=== PATIENT | female | born 1995 | race Caucasian/White ===

== ENCOUNTER 2016-11-07 07:20 | Emergency (ER) | payer BC ==
[2016-11-07 07:26] VITALS: TEMP 98.9; BMI 30.7
--- NOTE | 2016-11-07 08:03 | PDOC ---
History of Present Illness - General Chief Complaint: Injury Stated Complaint: R FOOT INJURY Time Seen by Provider: 11/07/16 07:50 History Source: Patient Exam Limitations: No Limitations - History of Present Illness Initial Comments: CHIEF COMPLAINT: 20 y/o afebrile female with no significant PMH c/o left foot pain since trauma yesterday. HISTORY OF PRESENT ILLNESS: The patient states someone fell onto her right foot. She heard a pop and has pain with ambulation since. she can ambulate but with pain. She denies numbness/tingling. She has been taking Ibuprofen for the pain. Vital signs on arrival are within normal limits. REVIEW OF SYSTEMS: GENERAL/CONSTITUTIONAL: No fever/chills. No weakness. No weight change. GENITOURINARY: No dysuria, frequency, or change in urination. MUSCULOSKELETAL: +right foot pain and swelling. No neck or back pain. SKIN: No rash or easy bruising. NEUROLOGIC: No headache, vertigo, loss of consciousness, or loss of sensation. PHYSICAL EXAM: VITAL_SIGNS: within normal limits GENERAL_APPEARANCE: alert, cooperative, mild obvious discomfort with ambulation. MENTAL_STATUS: speech clear, oriented X 3, responds appropriately to questions. NEURO: motor intact and sensory intact in injured extremity. EXTREMITIES: 2+ dorsalis pedis pulse in affected right foot. Mild swelling to right 5th carpal region of foot with TTP. No erythema or streaking. No obvious deformities. SKIN: warm, dry, good color. Past History - Past Medical History Allergies/Adverse Reactions: Allergies Allergy/AdvReac Type Severity Reaction Status Date / Time No Known Allergies Allergy Verified 11/07/16 07:50 Home Medications: Ambulatory Orders NK [No Known Home Medication] 11/07/16 Other medical history: denies - Psycho/Social/Smoking Cessation Hx Suicidal Ideation: No Smoking History: Never smoked Information on smoking cessation initiated: No Hx Alcohol Use: No Drug/Substance Use Hx: No Substance Use Type: None *Physical Exam - Vital Signs Last Vital Signs Temp Pulse Resp BP Pulse Ox 98.9 F 84 17 134/95 99 11/07/16 07:22 11/07/16 07:22 11/07/16 07:22 11/07/16 07:22 11/07/16 07:22 Procedures - Splinting Splint Location: Right: Foot Pre-Proc Neuro Vasc Exam: normal Hand-Made Type: orthoglass Splint Type: Yes: Posterior Post-Proc Neuro Vasc Exam: normal [place] Bandage: 3" (1), 4" (2) Complications: No Medical Decision Making - Medical Decision Making A/P: 20 y/o female with right foot pain s/p trauma. Plan is as follows: 1. hcg 2. Xray right foot/ankle xray right foot/ankle IMPRESSION: Fracture base of the 5th metatarsal Reduced and splinted the patient's affected foot in a posterior splint. Provided crutches and instructed her to be non weight bearing until f/u with her Orthopedic doctor. Provided a referral to ortho but she does inform me she already has one that she will see Wednesday. The patient verbalizes understanding of all instructions, has no further questions and is awaiting discharge. *DC/Admit/Observation/Transfer Diagnosis at time of Disposition: Fracture of 5th metatarsal Qualifiers: Encounter type: initial encounter Fracture type: closed Fracture alignment: nondisplaced Laterality: right Qualified Code(s): S92.354A - Nondisplaced fracture of fifth metatarsal bone, right foot, initial encounter for closed fracture - Discharge Dispostion Disposition: HOME Condition at time of disposition: Good - Referrals Referrals: Chcoo Mobley [Primary Care Provider] - Francisco Joel MD [Staff Physician] - (Call Wednesday) - Patient Instructions Printed Discharge Instructions: DI for Foot Fracture, How to Use Crutches Additional Instructions: Discharge Instructions: -Remain non-weight bearing until you have follow up with an Orthopedic doctor -Follow up with Dr. Joel on Wednesday -Continue taking Ibuprofen for pain -Elevate the leg to help with swelling -Return to the ER with any worsening or concerning symptoms.
[2016-11-07 09:56] VITALS: BP 124/70; PULSE 80
== END 2016-11-07 09:56 | disposition home or self-care (01) ==
LOC: JER 07:20
PROC: 2W3LX1Z Immobilization of Right Lower Extremity using Splint (ICD-10-PCS; principal; 2016-11-07)
DX: S92.354A Nondisplaced fracture of fifth metatarsal bone, right foot, initial encounter for closed fracture (principal); W50.0XXA Accidental hit or strike by another person, initial encounter; Y93.89 Activity, other specified; Y92.89 Other specified places as the place of occurrence of the external cause
CPT/HCPCS: 73610-TC-RT; 73630-TC-RT; 84703; 99282-25